=== PATIENT | female | born 1930 | race Caucasian/White ===

== ENCOUNTER 2017-10-24 12:55 | Emergency (ER) | payer OTHER ==
[~2017-10-24] VITALS: Ht 160 cm; Wt 63.5 kg
[~2017-10-24 12:55] MED LIST: GLIMEPIRIDE4 MG PO; GLYBURIDE2.5 M PO; METFORMIN1000 MG PO; VALSARTAN AND H1 TA2 PO; ZOC20 PO
[2017-10-24 12:57] VITALS: Ht 160 cm; Wt 63.5 kg
[2017-10-24 17:52] VITALS: BP 117/59
== END 2017-10-24 17:52 | disposition short-term general hospital (02) ==
LOC: ED 12:55
DX: S06.6X0A Traumatic subarachnoid hemorrhage without loss of consciousness, initial encounter (principal); E11.9 Type 2 diabetes mellitus without complications; I10 Essential (primary) hypertension; Z88.8 Allergy status to other drugs, medicaments and biological substances; W18.39XA Other fall on same level, initial encounter; Y93.89 Activity, other specified; Y92.89 Other specified places as the place of occurrence of the external cause; Y99.8 Other external cause status